=== PATIENT | male | born 1945 | race African-American/Black ===

== ENCOUNTER 2017-05-12 10:38 | Observation (INO) | payer MEDICARE, MEDICAID ==
[~2017-05-12] VITALS: Ht 165.1 cm; Wt 86.6 kg
[~2017-05-12 10:38] MED LIST: DIPH25CA83 PO; FURO40TA5 PO; IBUP-2029 PO; ISOS30TA12 PO; MECL12.584 PO; METF-516 PO; METF100P3 MC; METO-411 PO; PHEN50TA2 PO; RISP4TAB16 PO; SPIR50TA26 PO; TRAM50TA3 PO
[2017-05-12] MEDS ORDERED: ONDANSETRON HCL 4MG/2ML VIAL IV STA (11:18)
[2017-05-12] MEDS ORDERED: SODIUM CHLORIDE 0.9% 1,000 ML IV ONE (11:18)
[2017-05-12 11:53] LABS: BASOPHILS % 0.7 % (0.0-2.0); EOSINOPHILS % 6.7 % (0.0-5.0); HEMATOCRIT. 33.4 % (42.0-52.0); HEMOGLOBIN. 11.5 g/dL (14.0-18.0); LYMPHOCYTES % 17.3 % (20.0-50.0); MEAN CORPUSCULAR HEMOGLOBIN 30.7 pg (28.0-32.0); MEAN CORPUSCULAR VOLUME 89.3 fL (80.0-94.0); MEAN PLATELET VOLUME 5.7 fl (7.4-10.4); MONOCYTES % 6.7 % (2.0-8.0); NEUTROPHILS % 68.6 % (40.0-76.0); PLATELET 179 x1000/uL (130-400); RED BLOOD CELL COUNT 3.74 mill/uL (4.7-6.1); RED CELL DISTRIBUTION WIDTH 12.5 % (11.6-14.6)
[2017-05-12 12:03] LABS: PARTIAL THROMBOPLASTIN TIME 26.4 sec (23.4-31.0); PROTHROMBIN TIME 10.7 sec (9.4-11.6)
[2017-05-12 12:06] LABS: AMMONIA 32 uMol/L (<32); CARBON DIOXIDE 26 mEq/L (21-32); CHLORIDE 100 mEq/L (98-107); ETHANOL BLOOD < 10 mg/dL; TROPONIN I < 0.02 ng/mL (0.00-0.04)
[2017-05-12 12:16] LABS: CLARITY URINE CLOUDY (CLEAR); COLOR URINE YELLOW (YELLOW); GLUCOSE URINE NEGATIVE (NEGATIVE); KETONES URINE NEGATIVE (NEGATIVE); LEUKOCYTE ESTERASE URINE 1+ (NEGATIVE); NITRITE URINE NEGATIVE (NEGATIVE); OCCULT BLOOD URINE NEGATIVE (NEGATIVE); PH URINE 8.5 (4.5-8.0); PROTEIN URINE NEGATIVE (NEGATIVE); SPECIFIC GRAVITY URINE 1.013 (1.005-1.030); UROBILINOGEN URINE 0.2 E.U./dL (0.2-1.0)
[2017-05-12 12:19] LABS: CARBAMAZEPINE < 0.5 ug/mL (4-12); PHENOBARBITAL < 2.1 ug/mL (15.0-40.0); VALPROIC ACID < 3.0 ug/mL (50-100)
[2017-05-12] MEDS ORDERED: CEFTRIAXONE 1 G PREMIX 50 ML IV ONE (12:45)
[2017-05-12 12:55] LABS: *AMPHETAMINES SCREEN URINE NEGATIVE (NEGATIVE); *BARBITURATES SCREEN URINE NEGATIVE (NEGATIVE); *BENZODIAZEPINES SCREEN URINE PRESUMTIVE POSITIVE (NEGATIVE); *COCAINE SCREEN URINE NEGATIVE (NEGATIVE); CANNABINOID URINE SCREEN NEGATIVE (NEGATIVE); METHADONE URINE SCREEN NEGATIVE (NEGATIVE); OPIATES URINE SCREEN NEGATIVE (NEGATIVE); PHENCYCLIDINE URINE SCREEN NEGATIVE (NEGATIVE)
[2017-05-12 20:37] VITALS: BP 129/73
[2017-05-12] MEDS ORDERED: DEXTROSE 50% WATER 50ML SYRINGE IV PRN (21:15)
[2017-05-13] VITALS: BP 146/82
[2017-05-13] MEDS: ACETAMINOPHEN 325MG TABLET PO PRN ×2 (00:34→09:55)
[2017-05-13 04:00] VITALS: BP 140/75
[2017-05-13] MEDS: PHENYTOIN SODIUM EXTENDED 100MG CAPSULE PO SCH ×2 (06:07→13:31)
[2017-05-13] MEDS: BLOOD SUGAR DIAGNOSTIC STRIP TEST SCH ×3 (06:33→17:17)
[2017-05-13 07:15] LABS: CARBON DIOXIDE 25 mEq/L (21-32); CHLORIDE 107 mEq/L (98-107)
[2017-05-13] MEDS ORDERED: PANTOPRAZOLE 40MG DR TABLET PO SCH (07:20)
[2017-05-13] MEDS: INSULIN LISPRO 100 UNITS/ML SUBCUT SCH ×3 (07:20→17:23)
[2017-05-13 07:52] LABS: BASOPHILS % 0.6 % (0.0-2.0); EOSINOPHILS % 7.4 % (0.0-5.0); HEMATOCRIT. 36.7 % (42.0-52.0); HEMOGLOBIN. 12.7 g/dL (14.0-18.0); LYMPHOCYTES % 23.5 % (20.0-50.0); MEAN CORPUSCULAR HEMOGLOBIN 31.3 pg (28.0-32.0); MEAN CORPUSCULAR VOLUME 90.5 fL (80.0-94.0); MONOCYTES % 6.4 % (2.0-8.0); NEUTROPHILS % 62.1 % (40.0-76.0); PLATELET 193 x1000/uL (130-400); RED BLOOD CELL COUNT 4.06 mill/uL (4.7-6.1); RED CELL DISTRIBUTION WIDTH 12.5 % (11.6-14.6)
[2017-05-13 08:00] VITALS: BP 129/70
[2017-05-13 12:00] VITALS: BP 130/72
[2017-05-13 14:11] VITALS: BP 124/76
[2017-05-13] MEDS ORDERED: RISPERIDONE 1MG TABLET PO SCH (17:00)
== END 2017-05-13 20:08 | disposition home or self-care (01) ==
LOC: ER 10:49 → 6WST 13:33 → INTOOBSV 13:33 → ENRESERV 16:01
PROVIDERS: ADMIT Internal Medicine; ATTEND Internal Medicine
DX: G93.49 Other encephalopathy (principal); G40.909 Epilepsy, unspecified, not intractable, without status epilepticus; E11.9 Type 2 diabetes mellitus without complications; N39.0 Urinary tract infection, site not specified; F31.9 Bipolar disorder, unspecified; H91.90 Unspecified hearing loss, unspecified ear; D64.9 Anemia, unspecified; Z86.79 Personal history of other diseases of the circulatory system
CPT/HCPCS: 36415; 70450; 71010; 80048; 80053; 80156; 80165; 80184; 80185; 80305; 80307; 80329; 81001; 82140; 82962; 83690; 84443; 84484; 85025; 85610; 85730; 93005; 96361; 96365; 96375; 99285; G0378; G0482; J0696; J2405; J7030

== ENCOUNTER 2018-08-24 10:08 | Emergency (ER) | payer MEDICARE, MEDICAID ==
[~2018-08-24] VITALS: Ht 165.1 cm; Wt 82.0 kg
[~2018-08-24 10:08] MED LIST changes: -SPIR50TA26 PO; +SPIR50TA5 PO
[2018-08-24 10:11] VITALS: BP 142/70
== END 2018-08-24 11:22 | disposition left against medical advice (07) ==
LOC: ER 10:13
DX: M79.641 Pain in right hand (principal); M79.642 Pain in left hand; Z53.21 Procedure and treatment not carried out due to patient leaving prior to being seen by health care provider

== ENCOUNTER 2018-08-30 00:11 | Emergency (ER) | payer MEDICARE, MEDICAID ==
[~2018-08-30] VITALS: Ht 167.6 cm; Wt 82.0 kg
[2018-08-30] MEDS ORDERED: ACETAMINOPHEN 500MG TABLET PO ONE (01:15)
[2018-08-30 09:00] VITALS: BP 122/64
== END 2018-08-30 09:39 | disposition home or self-care (01) ==
LOC: ER 00:46
DX: S52.512A Displaced fracture of left radial styloid process, initial encounter for closed fracture (principal); M19.041 Primary osteoarthritis, right hand; M19.042 Primary osteoarthritis, left hand; X58.XXXA Exposure to other specified factors, initial encounter; Y93.9 Activity, unspecified; Y92.9 Unspecified place or not applicable; E11.9 Type 2 diabetes mellitus without complications; I10 Essential (primary) hypertension; Z79.899 Other long term (current) drug therapy
CPT/HCPCS: 29125; 73130; 99283

== ENCOUNTER 2018-11-15 10:12 | Inpatient (IN) | payer MEDICARE, MEDICAID ==
[~2018-11-15] VITALS: Ht 160 cm; Wt 81.2 kg
[2018-11-15] MEDS ORDERED: SODIUM CHLORIDE 0.9% 1,000 ML IV ONE (10:50)
[2018-11-15] MEDS ORDERED: PANTOPRAZOLE SODIUM 40 MG/VIAL IV ONE (11:00)
[2018-11-15 11:19] LABS: BASOPHILS % 0.5 % (0.0-2.0); HEMATOCRIT. 39.7 % (42.0-52.0); HEMOGLOBIN. 13.5 g/dL (14.0-18.0); LYMPHOCYTES % 10.7 % (20.0-50.0); MEAN CORPUSCULAR HEMOGLOBIN 30.3 pg (28.0-32.0); MEAN PLATELET VOLUME 5.9 fl (7.4-10.4); MONOCYTES % 5.9 % (2.0-8.0); NEUTROPHILS % 82.9 % (40.0-76.0); PLATELET 252 x1000/uL (130-400); RED BLOOD CELL COUNT 4.46 mill/uL (4.7-6.1); RED CELL DISTRIBUTION WIDTH 13.9 % (11.6-14.6)
[2018-11-15 11:23] LABS: CHLORIDE 102 mEq/L (98-107)
[2018-11-15 11:30] LABS: PROTHROMBIN TIME 10.4 sec (9.1-11.1)
[2018-11-15] MEDS ORDERED: PANTOPRAZOLE 80 MG in SODIUM CHLORIDE 0.9% 100 ML IV SCH ×2 (12:45→14:15)
[2018-11-15 13:26] LABS: HEPATITIS B SURFACE ANTIGEN NEGATIVE
[2018-11-15] MEDS: ONDANSETRON HCL 4MG/2ML INJ IV PRN (20:49)
[2018-11-15] MEDS ORDERED: ONDANSETRON HCL 4MG/2ML INJ IV PRN (21:30)
[2018-11-16] MEDS ORDERED: PANTOPRAZOLE 80 MG in SODIUM CHLORIDE 0.9% 100 ML IV SCH (03:00)
[2018-11-16] MEDS ORDERED: PHENYTOIN SODIUM 500 MG in SODIUM CHLORIDE 0.9% 50 ML IV SCH (03:00)
[2018-11-16] MEDS: ONDANSETRON HCL 4MG/2ML INJ IV PRN (04:25)
[2018-11-16 04:34] LABS: BASOPHILS % 0.2 % (0.0-2.0); EOSINOPHILS % 0.1 % (0.0-5.0); HEMATOCRIT. 35.5 % (42.0-52.0); HEMOGLOBIN. 12.1 g/dL (14.0-18.0); LYMPHOCYTES % 18.5 % (20.0-50.0); MEAN CORPUSCULAR HEMOGLOBIN 30.3 pg (28.0-32.0); MEAN CORPUSCULAR VOLUME 89.1 fL (80.0-94.0); MEAN PLATELET VOLUME 5.8 fl (7.4-10.4); MONOCYTES % 9.1 % (2.0-8.0); NEUTROPHILS % 72.1 % (40.0-76.0); PLATELET 216 x1000/uL (130-400); RED BLOOD CELL COUNT 3.98 mill/uL (4.7-6.1); RED CELL DISTRIBUTION WIDTH 14.3 % (11.6-14.6)
[2018-11-16 04:39] LABS: CHLORIDE 110 mEq/L (98-107)
[2018-11-16 04:41] LABS: INR 1.1; PARTIAL THROMBOPLASTIN TIME 28.2 sec (23.4-31.0); PROTHROMBIN TIME 10.7 sec (9.1-11.1)
[2018-11-16 04:48] LABS: LDL CHOLESTEROL 69 mg/dL (5-100)
[2018-11-16 04:50] LABS: HDL CHOLESTEROL 43 mg/dL (40-59)
[2018-11-16] MEDS ORDERED: FURO-152 MT (11:17)
[2018-11-16] MEDS ORDERED: IBUP-2030 MT (11:21)
[2018-11-16] MEDS ORDERED: MECL-127 MT (11:23)
[2018-11-16] MEDS ORDERED: HYDR-4133 MT (11:25)
[2018-11-16] MEDS ORDERED: PHEN50TA PO (11:30)
[2018-11-16] MEDS ORDERED: FERR325T6 MT (11:35)
[2018-11-16] MEDS ORDERED: OLAN5TAB3 MT (11:37)
[2018-11-16] MEDS ORDERED: OXYB5TAB11 MT (11:38)
[2018-11-16] MEDS ORDERED: GABA800T97 MT (11:42)
[2018-11-16] MEDS ORDERED: LACT10SO6 MT (11:42)
[2018-11-16] MEDS ORDERED: [UNRECOGNIZED DRUG - OTHER] (11:57)
[2018-11-16 12:00] VITALS: BP 118/72
[2018-11-16] MEDS ORDERED: [UNRECOGNIZED DRUG - REMARK] (12:27)
[2018-11-16 12:30] VITALS: BP 113/68
[2018-11-16] MEDS ORDERED: FENTANYL CITRATE/PF 50MCG/ML 2ML VIAL ONE (13:16)
[2018-11-16] MEDS ORDERED: MIDAZOLAM HCL 5 MG/5 ML VIAL ONE (13:16)
[2018-11-16] MEDS ORDERED: MIDAZOLAM HCL 5 MG/5 ML VIAL IV PRN (13:28)
[2018-11-16] MEDS ORDERED: FENTANYL CITRATE/PF 50MCG/ML 2ML VIAL IV PRN (13:29)
[2018-11-16] MEDS ORDERED: SODIUM CHLORIDE 0.9% 10ML VIAL ONE (14:53)
[2018-11-16] MEDS ORDERED: SIMETHICONE 40 MG/0.6 ML 30ML ONE (14:53)
[2018-11-16] MEDS ORDERED: PANTOPRAZOLE SODIUM 40 MG/VIAL IV SCH (16:00)
[2018-11-16] MEDS ORDERED: SODIUM BICARBONATE 100 MEQ in SODIUM CHLORIDE 0.45% 1,000 ML IV SCH (16:00)
[2018-11-16 16:15] VITALS: BP 113/64
[2018-11-16] MEDS: INSULIN LISPRO (LOW DOSE) 100 UNITS/ML SUBCUT SCH (16:27)
[2018-11-16] MEDS ORDERED: ATOR-2 PO (17:21)
[2018-11-16 20:36] VITALS: BP 93/46
[2018-11-16] MEDS: ATORVASTATIN CALCIUM 40MG TABLET PO SCH (22:44)
[2018-11-17] VITALS: BP 101/54
[2018-11-17 04:00] VITALS: BP 109/48
[2018-11-17] MEDS: INSULIN LISPRO (LOW DOSE) 100 UNITS/ML SUBCUT SCH ×3 (06:00→17:45)
[2018-11-17] MEDS: BLOOD SUGAR DIAGNOSTIC STRIP TEST SCH ×3 (07:00→17:44)
[2018-11-17 08:00] VITALS: BP 123/62
[2018-11-17] MEDS: METOCLOPRAMIDE HCL 10MG/2ML VIAL IV SCH ×3 (08:25→17:20)
[2018-11-17] MEDS: SUCRALFATE 1 G/10 ML UDC PO SCH ×4 (08:25→22:54)
[2018-11-17] MEDS: PANTOPRAZOLE SODIUM 40 MG/VIAL IV SCH (08:26)
[2018-11-17 12:00] VITALS: BP 136/65
[2018-11-17 12:16] LABS: BASOPHILS % 0.5 % (0.0-2.0); EOSINOPHILS % 3.7 % (0.0-5.0); HEMOGLOBIN. 10.8 g/dL (14.0-18.0); LYMPHOCYTES % 29.3 % (20.0-50.0); MEAN CORPUSCULAR VOLUME 88.4 fL (80.0-94.0); MEAN PLATELET VOLUME 5.7 fl (7.4-10.4); MONOCYTES % 6.7 % (2.0-8.0); NEUTROPHILS % 59.8 % (40.0-76.0); PLATELET 196 x1000/uL (130-400); RED BLOOD CELL COUNT 3.62 mill/uL (4.7-6.1); RED CELL DISTRIBUTION WIDTH 13.8 % (11.6-14.6)
[2018-11-17 12:29] LABS: CHLORIDE 109 mEq/L (98-107)
[2018-11-17] MEDS ORDERED: POTASSIUM CHLORIDE 20MEQ TABLET SR PO NR (14:00)
[2018-11-17] MEDS: LORAZEPAM 2MG/ML CPJ IV PRN ×3 (15:27→22:37)
[2018-11-17 16:00] VITALS: BP 158/73
[2018-11-17 16:56] LABS: HEMATOCRIT 34.3 % (42.0-52.0); HEMOGLOBIN 11.8 g/dL (14.0-18.0)
[2018-11-17 20:00] VITALS: BP 150/70
[2018-11-17] MEDS: ATORVASTATIN CALCIUM 40MG TABLET PO SCH (22:54)
[2018-11-18] VITALS (7 sets, daily range): BP systolic 123–197; BP diastolic 63–85
[2018-11-18] MEDS: INSULIN LISPRO (LOW DOSE) 100 UNITS/ML SUBCUT SCH ×4 (06:00→17:49)
[2018-11-18] MEDS: BLOOD SUGAR DIAGNOSTIC STRIP TEST SCH ×4 (06:26→17:48)
[2018-11-18] MEDS: SUCRALFATE 1 G/10 ML UDC PO SCH ×4 (06:27→21:42)
[2018-11-18] MEDS: METOCLOPRAMIDE HCL 10MG/2ML VIAL IV SCH ×2 (06:27→12:20)
[2018-11-18 06:33] LABS: CHLORIDE 111 mEq/L (98-107)
[2018-11-18 06:39] LABS: HEMATOCRIT 33.5 % (42.0-52.0); HEMOGLOBIN 11.6 g/dL (14.0-18.0); MEAN CORPUSCULAR HEMOGLOBIN 30.6 pg (28.0-32.0); MEAN CORPUSCULAR VOLUME 88.4 fL (80.0-94.0); PLATELET 219 x1000/uL (130-400); RED BLOOD CELL COUNT 3.79 mill/uL (4.7-6.1); RED CELL DISTRIBUTION WIDTH 13.6 % (11.6-14.6)
[2018-11-18] MEDS: PANTOPRAZOLE SODIUM 40 MG/VIAL IV SCH (08:03)
[2018-11-18] MEDS ORDERED: POTASSIUM CHLORIDE INJ 40 MEQ in DEXT 5% WATER 250 ML IV SCH (13:00)
[2018-11-18] MEDS ORDERED: LORAZEPAM 0.5MG TABLET PO SCH (13:45)
[2018-11-18] MEDS: PHENYTOIN 100 MG/4 ML UDC PO SCH ×2 (14:50→17:39)
[2018-11-18] MEDS: OLANZAPINE 5MG TABLET PO SCH (14:51)
[2018-11-18] MEDS ORDERED: POTASSIUM CHLORIDE 20MEQ TABLET SR PO NR (16:45)
[2018-11-18] MEDS: METOCLOPRAMIDE HCL 10MG TABLET PO SCH (17:39)
[2018-11-18] MEDS: ATORVASTATIN CALCIUM 40MG TABLET PO SCH (21:42)
[2018-11-19] VITALS: BP 132/76
[2018-11-19 04:00] VITALS: BP 144/72
[2018-11-19] MEDS: INSULIN LISPRO (LOW DOSE) 100 UNITS/ML SUBCUT SCH ×4 (06:00→17:53)
[2018-11-19] MEDS: BLOOD SUGAR DIAGNOSTIC STRIP TEST SCH ×4 (06:34→17:53)
[2018-11-19] MEDS: PHENYTOIN 100 MG/4 ML UDC PO SCH ×4 (06:34→17:47)
[2018-11-19 07:33] LABS: HEMATOCRIT 37.2 % (42.0-52.0); HEMOGLOBIN 12.7 g/dL (14.0-18.0); MEAN CORPUSCULAR VOLUME 87.6 fL (80.0-94.0); PLATELET 251 x1000/uL (130-400); RED BLOOD CELL COUNT 4.25 mill/uL (4.7-6.1); RED CELL DISTRIBUTION WIDTH 13.5 % (11.6-14.6)
[2018-11-19 07:46] LABS: CHLORIDE 111 mEq/L (98-107)
[2018-11-19 08:00] VITALS: BP 149/73
[2018-11-19] MEDS: PANTOPRAZOLE SODIUM 40 MG/VIAL IV SCH ×2 (09:00→09:12)
[2018-11-19] MEDS: METOCLOPRAMIDE HCL 10MG TABLET PO SCH ×3 (09:12→17:47)
[2018-11-19] MEDS: SUCRALFATE 1 G/10 ML UDC PO SCH ×4 (09:12→20:48)
[2018-11-19] MEDS: OLANZAPINE 5MG TABLET PO SCH (09:12)
[2018-11-19 12:00] VITALS: BP 149/99
[2018-11-19] MEDS ORDERED: POTASSIUM CHLORIDE 20MEQ TABLET SR PO SCH (13:30)
[2018-11-19] MEDS ORDERED: LACTULOSE 20G/30ML UDC PO SCH (13:30)
[2018-11-19] MEDS: ATORVASTATIN CALCIUM 40MG TABLET PO SCH (20:48)
[2018-11-20] VITALS: BP 146/77
[2018-11-20] MEDS: BLOOD SUGAR DIAGNOSTIC STRIP TEST SCH ×4 (00:07→18:01)
[2018-11-20] MEDS: PHENYTOIN 100 MG/4 ML UDC PO SCH ×4 (00:09→17:37)
[2018-11-20 04:00] VITALS: BP 116/60
[2018-11-20] MEDS: INSULIN LISPRO (LOW DOSE) 100 UNITS/ML SUBCUT SCH ×4 (05:47→18:00)
[2018-11-20] MEDS: SUCRALFATE 1 G/10 ML UDC PO SCH ×4 (06:23→21:13)
[2018-11-20] MEDS: METOCLOPRAMIDE HCL 10MG TABLET PO SCH ×3 (06:23→17:37)
[2018-11-20 06:51] LABS: HEMATOCRIT 37.6 % (42.0-52.0); HEMOGLOBIN 12.8 g/dL (14.0-18.0); MEAN CORPUSCULAR VOLUME 87.8 fL (80.0-94.0); PLATELET 270 x1000/uL (130-400); RED BLOOD CELL COUNT 4.28 mill/uL (4.7-6.1)
[2018-11-20 07:21] LABS: CHLORIDE 111 mEq/L (98-107)
[2018-11-20 08:00] VITALS: BP 138/65
[2018-11-20] MEDS: PANTOPRAZOLE SODIUM 40 MG/VIAL IV SCH ×2 (09:00→09:44)
[2018-11-20] MEDS: OLANZAPINE 5MG TABLET PO SCH (09:44)
[2018-11-20 12:00] VITALS: BP 111/66
[2018-11-20 16:00] VITALS: BP 137/77
[2018-11-20 20:00] VITALS: BP 149/83
[2018-11-20] MEDS: ATORVASTATIN CALCIUM 40MG TABLET PO SCH (21:13)
[2018-11-21] VITALS: BP 141/73
[2018-11-21] MEDS: PHENYTOIN 100 MG/4 ML UDC PO SCH ×5 (00:48→23:42)
[2018-11-21] MEDS: BLOOD SUGAR DIAGNOSTIC STRIP TEST SCH ×5 (00:48→23:42)
[2018-11-21 04:00] VITALS: BP 136/76
[2018-11-21] MEDS: INSULIN LISPRO (LOW DOSE) 100 UNITS/ML SUBCUT SCH ×5 (05:58→23:50)
[2018-11-21] MEDS: METOCLOPRAMIDE HCL 10MG TABLET PO SCH ×3 (06:24→17:04)
[2018-11-21] MEDS: SUCRALFATE 1 G/10 ML UDC PO SCH ×4 (06:24→21:49)
[2018-11-21 08:00] VITALS: BP 150/73
[2018-11-21] MEDS: PANTOPRAZOLE SODIUM 40 MG/VIAL IV SCH (09:00)
[2018-11-21] MEDS: OLANZAPINE 5MG TABLET PO SCH (09:04)
[2018-11-21 12:00] VITALS: BP 133/82
[2018-11-21 16:00] VITALS: BP 140/72
[2018-11-21] MEDS: ATORVASTATIN CALCIUM 40MG TABLET PO SCH (21:49)
[2018-11-21] MEDS: LORAZEPAM 0.5MG TABLET PO PRN (21:49)
[2018-11-22] VITALS: BP 116/57
[2018-11-22 04:00] VITALS: BP 112/59
[2018-11-22] MEDS: INSULIN LISPRO (LOW DOSE) 100 UNITS/ML SUBCUT SCH ×3 (06:00→18:00)
[2018-11-22] MEDS: LORAZEPAM 0.5MG TABLET PO PRN (06:06)
[2018-11-22] MEDS: PHENYTOIN 100 MG/4 ML UDC PO SCH ×3 (06:07→18:06)
[2018-11-22] MEDS: BLOOD SUGAR DIAGNOSTIC STRIP TEST SCH ×3 (06:07→18:06)
[2018-11-22] MEDS: METOCLOPRAMIDE HCL 10MG TABLET PO SCH ×3 (06:20→18:06)
[2018-11-22] MEDS: SUCRALFATE 1 G/10 ML UDC PO SCH ×4 (06:20→20:18)
[2018-11-22 07:22] LABS: HEMATOCRIT 39.8 % (42.0-52.0); HEMOGLOBIN 13.6 g/dL (14.0-18.0); MEAN CORPUSCULAR HEMOGLOBIN 29.9 pg (28.0-32.0); MEAN CORPUSCULAR VOLUME 87.5 fL (80.0-94.0); PLATELET 295 x1000/uL (130-400); RED BLOOD CELL COUNT 4.55 mill/uL (4.7-6.1); RED CELL DISTRIBUTION WIDTH 14.2 % (11.6-14.6)
[2018-11-22 08:00] VITALS: BP 128/86
[2018-11-22 08:17] LABS: CHLORIDE 106 mEq/L (98-107)
[2018-11-22] MEDS: PANTOPRAZOLE SODIUM 40 MG/VIAL IV SCH ×2 (09:00→10:10)
[2018-11-22] MEDS: OLANZAPINE 5MG TABLET PO SCH (10:10)
[2018-11-22 12:00] VITALS: BP 118/74
[2018-11-22 16:00] VITALS: BP 134/78
[2018-11-22] MEDS ORDERED: POTASSIUM CHLORIDE 20MEQ TABLET SR PO NR (17:00)
[2018-11-22 20:00] VITALS: BP 131/87
[2018-11-22] MEDS: ATORVASTATIN CALCIUM 40MG TABLET PO SCH (20:18)
[2018-11-23] VITALS: BP 130/81
[2018-11-23] MEDS: BLOOD SUGAR DIAGNOSTIC STRIP TEST SCH ×2 (00:06→05:39)
[2018-11-23] MEDS: PHENYTOIN 100 MG/4 ML UDC PO SCH ×2 (00:08→05:36)
[2018-11-23 04:00] VITALS: BP 131/71
[2018-11-23] MEDS: INSULIN LISPRO (LOW DOSE) 100 UNITS/ML SUBCUT SCH ×2 (05:42)
[2018-11-23] MEDS: METOCLOPRAMIDE HCL 10MG TABLET PO SCH (06:24)
[2018-11-23] MEDS: SUCRALFATE 1 G/10 ML UDC PO SCH (06:24)
[2018-11-23 07:56] VITALS: BP 138/73
[2018-11-23 08:00] VITALS: BP 138/73
[2018-11-23] MEDS: PANTOPRAZOLE SODIUM 40 MG/VIAL IV SCH (08:44)
[2018-11-23] MEDS: OLANZAPINE 5MG TABLET PO SCH (08:49)
== END 2018-11-23 10:07 | disposition home health service (06) | DRG 380 ==
LOC: ER 10:12 → 6WST 12:04 → EDBEDREQ 12:09 → ENRESERV 11-16 07:58 → 6WST 11-16 10:20 → 6EST 11-18 11:27
PROVIDERS: ADMIT Internal Medicine; ATTEND Internal Medicine
PROC: 0DB58ZX Excision of Esophagus, Via Natural or Artificial Opening Endoscopic, Diagnostic (ICD-10-PCS; principal; 2018-11-22)
PROC: 0DB68ZX Excision of Stomach, Via Natural or Artificial Opening Endoscopic, Diagnostic (ICD-10-PCS; 2018-11-22)
DX: K22.11 Ulcer of esophagus with bleeding (principal); G93.41 Metabolic encephalopathy; K57.31 Diverticulosis of large intestine without perforation or abscess with bleeding; K29.71 Gastritis, unspecified, with bleeding; K44.9 Diaphragmatic hernia without obstruction or gangrene; E87.6 Hypokalemia; N28.1 Cyst of kidney, acquired; E11.65 Type 2 diabetes mellitus with hyperglycemia; I10 Essential (primary) hypertension; I25.10 Atherosclerotic heart disease of native coronary artery without angina pectoris; E86.0 Dehydration; F41.9 Anxiety disorder, unspecified; F31.9 Bipolar disorder, unspecified; F20.9 Schizophrenia, unspecified; F03.90 Unspecified dementia, unspecified severity, without behavioral disturbance, psychotic disturbance, mood disturbance, and anxiety; G40.909 Epilepsy, unspecified, not intractable, without status epilepticus; D64.9 Anemia, unspecified; E78.00 Pure hypercholesterolemia, unspecified; Z87.19 Personal history of other diseases of the digestive system; Z91.013 Allergy to seafood; Z79.84 Long term (current) use of oral hypoglycemic drugs; Z79.899 Other long term (current) drug therapy
CPT/HCPCS: 36415; 71045; 74176; 80048; 80061; 80185; 82140; 82962; 83605; 83880; 84439; 84443; 84484; 85014; 85018; 85027; 86850; 86900; 86920; 88305; 88312; 88313; 93005; 93970; 96365; 96375; 97116; 97162; 99291; C1893; C9113; J1165; J2060; J2250; J2405; J2765; J3010; J3480; J3490; J7030; J7050; J7060; J8597

== ENCOUNTER 2019-08-04 07:00 | Emergency (ER) | payer MEDICARE, MEDICAID ==
[~2019-08-04] VITALS: Ht 167.6 cm; Wt 86.0 kg
[~2019-08-04 07:00] MED LIST changes: +ATOR-2 PO; +DICL1KIT14 TP; -DIPH25CA83 PO; +FERR325T6 MT; +FURO-152 MT; -FURO40TA5 PO; +GABA800T97 MT; +HYDR-4133 MT; -IBUP-2029 PO; +LACT10SO6 MT; +MECL-127 MT; -MECL12.584 PO; -METF100P3 MC; -METO-411 PO; +OLAN5TAB3 MT; +OXYB5TAB11 MT; +PHEN50TA PO; -PHEN50TA2 PO; -RISP4TAB16 PO; -SPIR50TA5 PO; -TRAM50TA3 PO
[2019-08-04] MEDS ORDERED: FAMOTIDINE 20MG/2ML VIAL IV STA (07:18)
[2019-08-04 09:24] LABS: BASOPHILS % 0.6 % (0.0-2.0); EOSINOPHILS % 3.4 % (0.0-5.0); HEMATOCRIT. 39.4 % (42.0-52.0); HEMOGLOBIN. 13.6 g/dL (14.0-18.0); LYMPHOCYTES % 25.1 % (20.0-50.0); MEAN CORPUSCULAR HEMOGLOBIN 30.6 pg (28.0-32.0); MEAN CORPUSCULAR VOLUME 88.7 fL (80.0-94.0); MEAN PLATELET VOLUME 6.6 fl (7.4-10.4); MONOCYTES % 3.6 % (2.0-8.0); NEUTROPHILS % 67.3 % (40.0-76.0); PLATELET 170 x1000/uL (130-400); RED BLOOD CELL COUNT 4.44 mill/uL (4.7-6.1); RED CELL DISTRIBUTION WIDTH 13.5 % (11.6-14.6)
[2019-08-04 09:31] LABS: CHLORIDE 108 mEq/L (98-107)
[2019-08-04 09:35] LABS: ETHANOL BLOOD < 10 mg/dL
[2019-08-04 10:35] LABS: PROTHROMBIN TIME 10.7 sec (9.6-11.0)
[2019-08-04] MEDS ORDERED: LORAZEPAM 2MG/ML CPJ IV ONE (11:15)
[2019-08-04] MEDS ORDERED: LORAZEPAM 1MG TABLET PO ONE (11:30)
[2019-08-04 12:00] VITALS: BP 155/82
== END 2019-08-04 12:10 | disposition home or self-care (01) ==
LOC: ER 07:00 → SUPCPDRO 11:14 → CANBEDREQ 12:00 → ER 12:10
DX: K29.70 Gastritis, unspecified, without bleeding (principal); I11.0 Hypertensive heart disease with heart failure; I50.43 Acute on chronic combined systolic (congestive) and diastolic (congestive) heart failure; I69.322 Dysarthria following cerebral infarction; G93.49 Other encephalopathy; R11.2 Nausea with vomiting, unspecified; R10.9 Unspecified abdominal pain; K22.10 Ulcer of esophagus without bleeding; F20.9 Schizophrenia, unspecified; D64.9 Anemia, unspecified
CPT/HCPCS: 36415; 71045; 74176; 80053; 80320; 83690; 83880; 84484; 85025; 85610; 93005; 96374; 96375; 99284; J2060; J3490; G0480